=== PATIENT | female | born 1970 | race Caucasian/White ===

== ENCOUNTER 2016-12-08 15:18 | Emergency (ER) | payer OTHER ==
[~2016-12-08 15:18] MED LIST: ATIVAN PO; DETROL LA PO; GLUCOSAMINE PO; GUAIFENESI1 TAB.SR . PO; LOMOTIL TABLET1 TAB PO; LORTAB 2.5/5001 TAB PO; LORTAB 7.5-5001 TAB PO; MOBIC PO; NAPROSYN-EC500 M1 PO; NASACORT AQ16.5 GM; NO MEDICATIONS; PHENERGAN PO; PHENERGAN25 M1 PO; PRILOSEC PO; PROZAC PO; ROBAFEN100 MG/5 M PO; ROBAXIN500 MG PO; SINGULAIR PO; VIT B-12 PO; VIT C PO; XANAX0.5 MG PO; ZOFRAN ODT4 MG SL; ZOLOFT PO; ZYRTEC PO; [UNRECOGNIZED DRUG - REMARK]; [UNRECOGNIZED DRUG - REMARK]
== END 2016-12-08 17:23 | disposition home or self-care (01) ==
LOC: CFTX 15:18 → CED 15:18 → CFTX 16:30
DX: R21 Rash and other nonspecific skin eruption (principal); F41.9 Anxiety disorder, unspecified; F31.9 Bipolar disorder, unspecified; R56.9 Unspecified convulsions; Z90.49 Acquired absence of other specified parts of digestive tract; Z88.8 Allergy status to other drugs, medicaments and biological substances; Z79.899 Other long term (current) drug therapy
CPT/HCPCS: 84703; 96372; 99283; J1100

== ENCOUNTER 2017-01-04 17:20 | Emergency (ER) | payer OTHER | END 2017-01-04 18:55 | disposition home or self-care (01) | LOC: CED 17:20 → CFTX 17:20 | DX: J06.9 Acute upper respiratory infection, unspecified (principal); Z90.49 Acquired absence of other specified parts of digestive tract; Z79.899 Other long term (current) drug therapy; Z88.8 Allergy status to other drugs, medicaments and biological substances | CPT/HCPCS: 99283 ==

== ENCOUNTER 2017-02-07 13:48 | Emergency (ER) | payer OTHER ==
[~2017-02-07] VITALS: Ht 160 cm; Wt 113.4 kg
--- NOTE | ~2017-02-07 | EKG ---
PATIENT: KAYCEE ALEJANDRO UNIT #: [id number] Ventricular Rate: 75 BPM Atrial Rate: 75 BPM P-R Interval: 164 ms QRS Duration: 94 ms Q-T Interval: 406 ms QTC Calculation(Bezet): 453 ms P [place]: 42 degrees Calculated R [place]: 9 degrees Calculated T [place]: 33 degrees Diagnosis Line: Normal sinus rhythm with sinus arrhythmia Diagnosis Line: Normal ECG Diagnosis Line: When compared with ECG of 09-JUL-2016 22:05, Diagnosis Line: No significant change was found Diagnosis Line: Confirmed by CHARLES VILLAGOMEZ MD ([id number]) on 02/08/2017 Diagnosis Line: 12:08:50 AM INTERPRETING MD: DAHLIA GOOD
[2017-02-07 15:35] LABS: BASOPHIL% 0.7 % (0-2.5); DIFF IND NO; EOSINOPHIL# 0.2 X10e3 (0-0.7); EOSINOPHIL% 3.2 % (0.0-7.0); LYMPHOCYTE# 1.2 X10e3 (1.0-3.5); LYMPHOCYTE% 21.8 % (17.0-45.0); MEAN CELL VOLUME 87.7 FL (83-96); MEAN CORPUSCULAR HGB CONC 34.2 g/dL (30-36); MEAN PLATELET VOLUME 8.1 FL (6.5-11.5); MONOCYTE# 0.3 X10e3 (0-1.0); MONOCYTE% 6.3 % (3.0-12.0); NEUTROPHIL# 3.8 X10e3 (1.5-7.1); PLATELET COUNT 209 X10e3 (140-420); RED BLOOD COUNT 4.33 X10e (3.90-5.30); RED CELL DISTRIBUTION WIDTH 12.9 % (11.0-15.5); WHITE BLOOD COUNT 5.5 X10e3 (4.0-10.5)
[2017-02-07 16:24] LABS: ALBUMIN SERUM 4.1 g/dL (3.5-5.0); BILIRUBIN, DIRECT 0.1 mg/dL (0.0-0.2); BILIRUBIN,INDIRECT 1.1 mg/dL (0.0-0.9); BILIRUBIN,TOTAL 1.2 mg/dL (0.2-2.0); BUN/CREATININE RATIO 10.9; CREATININE SERUM 1.1 mg/dL (0.6-1.4); POTASSIUM 3.8 mmol/L (3.5-5.1); PROTEIN TOTAL SERUM 7.3 g/dL (6.0-8.3)
== END 2017-02-07 17:11 | disposition home or self-care (01) ==
LOC: CED 13:48
PROVIDERS: Emergency Medicine
DX: R60.0 Localized edema (principal); M54.5 Low back pain; E66.01 Morbid (severe) obesity due to excess calories; G47.30 Sleep apnea, unspecified; Z88.8 Allergy status to other drugs, medicaments and biological substances
CPT/HCPCS: 36415; 80048; 80076; 83690; 83880; 85025; 93005; 99283